=== PATIENT | male | born 1970 | race Caucasian/White ===

== ENCOUNTER → 2019-05-18 11:00 | Outpatient (CLI) | payer SELFPAY ==
--- NOTE | 2019-05-18 11:00 | COLBX_PTH ---
PATIENT: CASIE MEZA LOC: [facility] U#:[id number] AGE/SX: 55/M ROOM: RE05/18/[address]: Dr. Sunshine Jenkins MD : 1970 BED: DIS: SPEC #: [id number] RECD: 05/18/19 15:28 STATUS: ELIZABETH NELDA #: [id number] JEROME: 05/18/19 11:[address]: Sunshine Jenkins DEPT: SURGICAL PATHOLOGY RECD BY: Fabrice Fisher ENTERED: 05/19/19 09:10 SP TYPE: COLON BX OTHR DR: Dr. Marleen Adams MD Tissues: A - Cecum, NOS B - POLYP C - Transverse colon D - Sigmoid colon biopsy E - Rectum, NOS Procedures: Surgery Specimen Level IV HEADER OPERATION: Colonoscopy with biopsy and snare PRE-OP DIAGNOSIS: Z12.11 TISSUE SUBMITTED: A. Cecum polyp, B. Right colon polyp (cold snare), C. Transverse colon polyp (cold snare), D. Sigmoid colon polyp, E. Rectal polyp (cold snare) MICROSCOPIC DIAGNOSIS A. Cecum polyp, biopsy: A fragment of colonic mucosa, no pathologic diagnosis. B. Right colon polyp, biopsy: Fragments of tubular adenoma. C. Transverse colon polyp, biopsy: Fragments of tubular adenoma. D. Sigmoid colon polyp, biopsy: Fragments of tubular adenoma. E. Rectal polyp, biopsy: Hyperplastic polyp. SJ:su 05/22/19 MICROSCOPIC DESCRIPTION Slides are reviewed. GROSS DESCRIPTION A - Received in fixative is one container labeled with the patient's name and designated cecal polyp. The specimen consists of one irregular fragment of light aden soft tissue that measures 0.2 x 0.1 x 0.1 cm. The specimen is totally submitted in one cassette. B - Received in fixative is one container labeled with the patient's name and designated right colon polyp. The specimen consists of multiple irregular fragments of light aden soft tissue that in aggregate measure 1 x 0.8 x 0.1 cm. The specimen is totally submitted in one cassette. C - Received in fixative is one container labeled with the patient's name and designated transverse colon polyp. The specimen consists of multiple irregular fragments of light aden soft tissue that in aggregate measure 1 x 0.3 x 0.1 cm. The specimen is totally submitted in one cassette. D - Received in fixative is one container labeled with the patient's name and designated sigmoid colon polyp. The specimen consists of two irregular fragments of light aden soft tissue that in aggregate measure 0.5 x 0.5 x 0.1 cm. The specimen is totally submitted in one cassette. E - Received in fixative is one container labeled with the patient's name and designated rectal polyp. The specimen consists of one irregular fragment of light aden soft tissue that measures 0.7 x 0.5 x 0.1 cm. The specimen is totally submitted in one cassette. / AM:su 05/19/19 TC:1 CPT: 30144 x5
== END ==
PROVIDERS: Family Provider Internal Medicine; PCP Internal Medicine; Referring Provider Surgery; Visit Provider Surgery
DX: Z12.11 Encounter for screening for malignant neoplasm of colon (principal); D12.5 Benign neoplasm of sigmoid colon; D12.3 Benign neoplasm of transverse colon; K63.5 Polyp of colon; K62.1 Rectal polyp
CPT/HCPCS: 88305

== ENCOUNTER → 2023-08-06 | Outpatient (CLI) | payer SELFPAY ==
--- NOTE | 2023-08-06 08:22 | COLBX_PTH ---
PATHOLOGY RESULTS PATIENT: CASIE MEZA LOC: [facility] U#:[id number] AGE/SX: 53/M ROOM: RE08/06/[address]: Dr. Sunshine Jenkins MD : 1970 BED: DIS: 08/06/2023 SPEC #: [id number] RECD: 08/09/23 08:04 STATUS: ELIZABETH LUTZ #: [id number] JEROME: 08/06/23 08:[address]: Sunshine Jenkins DEPT: SURGICAL PATHOLOGY RECD BY: Rubia Giron ENTERED: 08/09/23 08:04 SP TYPE: COLON BX OTHR DR: Dr. Marleen Adams MD Tissues: Transverse colon Procedures: Surgery Specimen Level IV HEADER OPERATION: Colonoscopy PRE-OP DIAGNOSIS: History of polyps TISSUE SUBMITTED: Transverse colon polyp MICROSCOPIC DIAGNOSIS Transverse colon polyp, biopsy: Fragments of tubular adenoma. SJ:su 08/10/2023 MICROSCOPIC DESCRIPTION Slides are reviewed. GROSS DESCRIPTION Received in fixative is one container labeled with the patient's name and designated transverse colon polyp. The specimen consists of two irregular fragments of light aden soft tissue that in aggregate measure 1.0 x 0.5 x 0.3 cm. A few fragments of fecal material are also noted. The entire specimen is submitted in one cassette. / SJ:rg 08/09/2023 TC:1 CPT: 10187
== END | disposition home or self-care (01) ==
LOC: LABSPEC 15:41
PROVIDERS: PCP Internal Medicine; Referring Provider Surgery; Visit Provider Surgery
DX: Z86.010 Personal history of colon polyps (principal)
CPT/HCPCS: 88305